=== PATIENT | female | born 1985 | race Caucasian/White ===

== ENCOUNTER 2017-01-18 15:33 | Emergency (ER) | payer OTHER ==
--- NOTE | 2017-01-18 17:39 | UC ---
Back Pain HPI - HPI Summary HPI Summary: complaint of of neck and back pain last night at work she was cleaning , mopping and sweeping felt a strange feeling in her lower back lower back pain worsened last night then thismorning she could hardly get out of bed d/t back pain pain is worsened by leaning forwrd, standing increases the pain constant aching pain that radiates into her right leg took some aleve this morning without much relief hx of back surgery- laminectomy L5-S1- 2 years ago denies fever, incontinence, no weight loss in the last year - History of Current Complaint Chief Complaint: UCBackPain Stated Complaint: NECK PAIN Time Seen by Provider: 01/18/17 17:28 Hx Obtained From: Patient Hx Last Menstrual Period: IUD - does not get - Allergies/Home Medications Allergies/Adverse Reactions: Allergies Allergy/AdvReac Type Severity Reaction Status Date / Time Hydrochlorothiazide Allergy Tingling Verified 01/18/17 16:08 Home Medications: Home Medications Cyanocobalamin [B-12] 1,000 mcg PO 01/18/17 [History] Naproxen Sodium-Diphenhydramin [Aleve PM 220-25 mg] 1 tab PO 01/18/17 [History] Niacin [Niacin Tr] 1,000 mg PO 01/18/17 [History] sulfADIAZINE (NF) [SulfADIAZine (NF)] 500 mg PO 01/18/17 [History] PMH/Surg Hx/FS Hx/Imm Hx Previously Healthy: Yes - psoritc arthritis Other History Of: Negative For: HIV, Hepatitis B, Hepatitis C, Anticoagulant Therapy - Surgical History Surgical History: Yes Surgery Procedure, Year, and Place: Laminectomy and disectomy NOVEMBER 2014 - Family History Known Family History: Positive: Cardiac Disease, Hypertension, Other - CONCONTIBUTORY Negative: Diabetes, Renal Disease - Social History Occupation: Employed Full-time Lives: With Family Alcohol Use: None Substance Use Type: None Substance Use Comment - Amount & Last Used: IN RECOVERY Smoking Status (MU): Light Every Day Tobacco Smoker Type: Cigarettes Amount Used/How Often: <10 CIGS/DAY Have You Smoked in the Last Year: Yes Cessation Counseling: Patient Advised to Stop - Immunization History Most Recent Influenza Vaccination: 2013 Review of Systems Constitutional: Negative Skin: Negative Eyes: Negative ENT: Negative Respiratory: Negative Cardiovascular: Negative Gastrointestinal: Negative Genitourinary: Negative Motor: Negative Neurovascular: Negative Musculoskeletal: Other: - lower back pain Neurological: Negative Psychological: Negative All Other Systems Reviewed And Are Negative: Yes Physical Exam Triage Information Reviewed: Yes Appearance: No Pain Distress, Well-Nourished Vital Signs: Initial Vital Signs Temp 98.0 F 01/18/17 16:02 Pulse 78 01/18/17 16:02 Resp 20 01/18/17 16:02 BP 139/95 01/18/17 16:02 Pulse Ox 100 01/18/17 16:02 Vital Signs Reviewed: Yes Eyes: Positive: Conjunctiva Clear ENT: Positive: Pharynx normal, TMs normal Neck: Positive: No Lymphadenopathy Respiratory: Positive: Lungs clear, Normal breath sounds, No respiratory distress, No accessory muscle use Cardiovascular: Positive: RRR, No Murmur, Pulses Normal, Brisk Capillary Refill Abdomen Description: Positive: Nontender, Soft Bowel Sounds: Positive: Present Musculoskeletal: Positive: Other: - Spine have no noted deformities or signs of inflammation. Curvature of thoracic, and lumbar spine are within normal limits. Bony features of shoulders and hips are of equal height bilaterally. Posture is upright, and gait is smooth and normal. Spinous processes of T1-L5 palpable, midline, and non-tender; No step-offs. right lumbar paraspinal tenderness. Flexion, extension, and rotation of the remaining spinal column is limited d/t pain. Neurological: Positive: Other: - SLR negative patellar reflexes intact Psychological Exam: Normal Skin Exam: Normal Back Pain Course/Dx - Course Course Of Treatment: exam completed. no red flags to warrant imaging. will treat with NSAIDS, muscle relaxer and send to PT for further evaluation and treatment - Differential Dx/Diagnosis Differential Diagnosis/HQI/PQRI: Herniated Disc, Strain, Sprain Provider Diagnoses: lower back pain Discharge - Discharge Plan Condition: Stable Disposition: HOME Prescriptions: Cyclobenzaprine TAB* [Flexeril 10 MG TAB*] 10 mg PO BEDTIME PRN #7 tab PRN Reason: Spasms - Muscle Patient Education Materials: Low Back Strain (ED) Forms: *Work Release Referrals: Court Curry MD [Primary Care Provider] - Additional Instructions: Start flexeril as directed. Do not drink alcohol or drive while taking flexeril. Please call physical therapy for further evaluation and treatment. Take ibuprofen for fever or pain. Increase fluids and rest. Please review your discharge instructions. If your symptoms do not improve please call your primary care provider or return to urgent care. Your blood pressure is pre-hypertensive reading. Please contact your primary care provider within 1 day -4 weeks for further evaluation
[2017-01-18] MEDS ORDERED: Ketorolac INJ* 60 MG/2 ML VIAL IM ONE (17:48)
[2017-01-18 18:09] VITALS: BP 172/97
== END 2017-01-18 18:00 | disposition home or self-care (01) ==
LOC: UCEAST 15:33
DX: M54.5 Low back pain (principal); L40.50 Arthropathic psoriasis, unspecified; Z72.0 Tobacco use
CPT/HCPCS: 96372; 99212; G0463; J1885